=== PATIENT | female | born 1955 | race Caucasian/White ===

== ENCOUNTER 2022-03-30 13:58 | Emergency (ER) | payer MEDICARE ==
[2022-03-30 14:12] VITALS: BP 126/65
[2022-03-30] MEDS ORDERED: LIDOCAINE 1%-EPI 1:100000 20 ML MDV SUBQ STA (14:32)
--- NOTE | 2022-03-30 14:35 | ED Physician Documentation ---
PD HPI SKIN - Stated complaint Stated Complaint: BACK PX - Chief complaint Chief Complaint: Wound - History obtained from History obtained from: Patient - Additional information Additional information: Patient is a 66-year-old presenting for evaluation of a boil to her back that is been present for the last month. She reports having these recurrently and normally they will open up on their own after 2 to 3 weeks but this 1 is not and seems to be increasing in size and causing more discomfort. She denies any known injury or trauma. She has not taken any medications or tried any treatments for it.She does have a history of genital herpes and reports currently having outbreak and is on Valtrex.She denies fever, chest pain, difficulty breathing, abdominal pain, vomiting or dysuria. Review of Systems Constitutional: denies: Fever Nose: denies: Congestion Cardiac: denies: Chest pain / pressure Respiratory: denies: Dyspnea GI: denies: Abdominal Pain, Vomiting Skin: reports: Other (Abscess) Musculoskeletal: denies: Neck pain Neurologic: denies: Headache PD PAST MEDICAL HISTORY - Present Medications Home Medications: Ambulatory Orders Medication Instructions Recorded Confirmed Sulfamethox/Trimeth 800/160 1 each PO BID #14 tablet 03/30/22 [Bactrim Ds 800/160] cephALEXin [Keflex] 500 mg PO Q6H #28 cap 03/30/22 - Allergies Allergies/Adverse Reactions: Allergies Allergy/AdvReac Type Severity Reaction Status Date / Time amoxicillin Allergy Itching Verified 03/30/22 14:12 nitrofurantoin Allergy Anaphylaxis Verified 03/30/22 14:12 [From Macrobid] Penicillins Allergy Itching Verified 03/30/22 14:12 PD ED PE NORMAL - General General: Alert and oriented X 3, No acute distress, Well developed/nourished - HEENT HEENT: Atraumatic, Moist mucous membranes - Neck Neck: Supple, no meningeal sign - Cardiac Cardiac: RRR, Strong equal pulses - Respiratory Respiratory: No respiratory distress, Clear bilaterally - Back Back: No spinal TTP, Other (2 cm area of swelling and fluctuance to mid thoracic region) - Derm Derm: Warm and dry - Extremities Extremities: No edema - Neuro Neuro: Normal speech Results - Vitals Vitals: Vital Signs - 24 hr 03/30/22 14:08 Temperature 36.8 C Heart Rate 77 Respiratory 16 Rate Blood Pressure 126/65 O2 Saturation 98 Oxygen O2 Source Room air Procedures - Abscess I&D (location) Back Preparation: Confirmed with ultrasound, Lidocaine 1%, With epi Incision: Incised with scalpel, Purulent drainage, Loculations broken Other: Pt tolerated well, Dressing applied PD MEDICAL DECISION MAKING - ED course ED course: Patient with abscess to the back that was incised and drained which patient tolerated well. There is an area of overlying erythema and I have covered for cellulitis with antibiotics. Patient counseled on concerning symptoms to return for. Her vital signs are stable and she does not appear septic. Departure - Departure Disposition: 01 Home, Self Care Clinical Impression: Back abscess, Cellulitis of back Condition: Stable Instructions: ED Abscess IandD Prescriptions: Sulfamethox/Trimeth 800/160 [Bactrim Ds 800/160] 1 each PO BID #14 tablet cephALEXin [Keflex] 500 mg PO Q6H #28 cap Comments: You were evaluated for an abscess to your back which was incised and drained. I would expect this to continue to drain for the next several days. Have applied a dressing. You can keep a clean and dry dressing over the wound. There was an area of overlying redness And so I have started you on antibiotics to cover for a skin infection. I have sent these prescriptions to [facility] in [place].If you have any worsening symptoms please consider return to the ER or follow-up with your primary care doctor. Discharge Date/Time: 03/30/22 15:29
== END 2022-03-30 15:29 | disposition home or self-care (01) ==
LOC: ED 13:58
DX: L03.312 Cellulitis of back [any part except buttock and flank] (principal)
CPT/HCPCS: 10060; 99282

== ENCOUNTER 2024-02-20 17:02 | Emergency (ER) | payer MEDICARE ==
--- NOTE | 2024-02-20 17:15 | ED Physician Documentation ---
PD HPI SKIN - Stated complaint Stated Complaint: ABCESS/BACK PX - Chief complaint Chief Complaint: Wound - History obtained from History obtained from: Patient - Additional information Additional information: 68-year-old female presents with swelling and redness on her right lower back. Patient states that she had a swollen but soft area on her right lower back for a couple of months but a week or so ago it started to get more sore and irritated. She went to the walk-in clinic and received a 5-day prescription for doxycycline which she just completed and has not had any improvement and in fact has developed increasing redness and soreness around the affected area. Today she felt like The wound might be worsening and became concerned thus presented to the ER. Patient does have a history of Sepsis and necrotizing fasciitis about 15 years ago after a large groin wound. She has a history of MRSA. Review of Systems Constitutional: reports: Reviewed and negative Eyes: reports: Reviewed and negative Ears: reports: Reviewed and negative Nose: reports: Reviewed and negative Throat: reports: Reviewed and negative Cardiac: reports: Reviewed and negative Respiratory: reports: Reviewed and negative GI: reports: Reviewed and negative : reports: Reviewed and negative Skin: reports: Lesions Musculoskeletal: reports: Reviewed and negative Neurologic: reports: Reviewed and negative Psychiatric: reports: Reviewed and negative Endocrine: reports: Reviewed and negative PD PAST MEDICAL HISTORY - Past Medical History Past Medical History: Yes Cardiovascular: Coronary artery disease CARD 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: Breast cancer Derm: Other Other Past Medical History: necrotizing fascitis - Past Surgical History Past Surgical History: Yes Cardiovascular: Coronary stent - Present Medications Home Medications: Ambulatory Orders Medication Instructions Recorded Confirmed Sulfamethox/Trimeth 800/160 1 each PO BID #14 tablet 03/30/22 [Bactrim Ds 800/160] cephALEXin [Keflex] 500 mg PO Q6H #28 cap 03/30/22 Doxycycline [Vibramycin] 100 mg PO BID #20 tablet 02/20/24 cephALEXin [Keflex] 500 mg PO Q6H #28 cap 02/20/24 - Allergies Allergies/Adverse Reactions: Allergies Allergy/AdvReac Type Severity Reaction Status Date / Time amoxicillin Allergy Itching Verified 02/20/24 17:12 nitrofurantoin Allergy Anaphylaxis Verified 02/20/24 17:12 [From Macrobid] Penicillins Allergy Itching Verified 02/20/24 17:12 - Social History Does the pt smoke?: No Smoking Status: Never smoker Does the pt drink ETOH?: No Does the pt have substance abuse?: No - Immunizations Immunizations are current?: Yes PD ED PE NORMAL - Vitals Vital signs reviewed: Yes - General General: Alert and oriented X 3, No acute distress, Well developed/nourished - Back Back: No CVA TTP, No spinal TTP - Derm Derm: Normal color, Warm and dry, Other (There is a 5 x 3 cm area of induration right mid lower back with surrounding erythema, no streaking erythema. No fluctuance mildly tender to touch.) - Neuro Neuro: Alert and oriented X 3 Eye Opening: Spontaneous Motor: Obeys Commands Verbal: Oriented GCS Score: 15 - Psych Psych: Normal mood, Normal affect Results - Vitals Vitals: Vital Signs - 24 hr 02/20/24 02/20/24 17:07 18:03 Temperature 36.5 C 36.8 C Heart Rate 72 70 Respiratory 20 18 Rate Blood Pressure 167/114 H 140/88 H O2 Saturation 97 98 Oxygen O2 Source Room air Procedures - Abscess I&D (location) Back right Lower Preparation: Betadine, Lidocaine 1%, With epi Incision: Incised with scalpel, Loculations broken, Irrigated, Packed Other: Pt tolerated well, Antibiotic prescribed PD Medical Decision Making - ED course Complexity details: considered differential, d/w patient ED course: 68-year-old female presented with a lesion on her right lower back is reddened, indurated. There is concern for abscess versus cyst versus cellulitis. After discussion patient she did wish to proceed with incision and drainage. The area was cleaned and prepped thoroughly, anesthetized locally with 1% lidocaine with epi and an incision was made into the wound. There was chunky cystic like drainage from the wound suspicious for a ruptured cyst. The loculations were broken up, and quite a bit of Cystic tissue was removed from the wound. I irrigated with saline and cleaned thoroughly and then packed with iodoform. Patient tolerated this very well and felt substantially relief. I advised that this will likely continue to drain, recommended continuing warm compress, and follow-up in 2 days for wound reevaluation and removal of packing. Hopefully at that point in time if there is improvement we can discontinue the packing. I am going to extend the doxycycline for another 10 days and also cover with Keflex given patient's history of severe illness related to abscess. She was advised to return immediately if she developed worsening symptoms, fever, flulike symptoms, spreading erythema, increased pain or new concerns. Departure - Departure Disposition: 01 Home, Self Care Clinical Impression: Infected cyst of skin Condition: Good Instructions: ED Abscess IandD Prescriptions: cephALEXin [Keflex] 500 mg PO Q6H #28 cap Doxycycline [Vibramycin] 100 mg PO BID #20 tablet Comments: You had a cyst on your back that appears to have ruptured and caused an infection. I incised the skin in drain is much of the cyst as I could. There is packing in the wound and I would like you to return in 2 days to have the wound reevaluated. In the meantime, we will start you on 2 antibiotics called Keflex and doxycycline. Please take these until completed. If you develop a fever or worsening symptoms return to the ER at any point in time. Forms: PCP List Discharge Date/Time: 02/20/24 18:05
[2024-02-20] MEDS: cephALEXin 250 MG CAPSULE PO STA (18:01)
[2024-02-20] MEDS: DOXYCYCLINE 100 MG TABLET PO STA (18:01)
[2024-02-20 18:11] VITALS: BP 140/88; O2SAT 98
== END 2024-02-20 18:05 | disposition home or self-care (01) ==
LOC: ED 17:02
DX: L72.9 Follicular cyst of the skin and subcutaneous tissue, unspecified (principal); Z88.1 Allergy status to other antibiotic agents
CPT/HCPCS: 10061; 99283; A9270

== ENCOUNTER 2024-02-22 12:38 | Emergency (ER) | payer MEDICARE ==
--- NOTE | 2024-02-22 13:11 | ED Physician Documentation ---
History of Present Illness - Stated complaint Stated Complaint: BACK WOUND FOLLOW UP - Chief complaint Chief Complaint: General - History obtained from History obtained from: Patient - Additonal information Additional information: Patient is a 68-year-old female presenting to the emergency department 2 days after having incision and drainage here in the emergency department for right flank abscess. Patient had packing placed and was instructed to return in 2 days for removal of packing. Patient's wound was irrigated well 2 days ago in emergency department. Patient notes persistent pain but has improvement in drainage from the wound. Packing remains in place. She has no fevers or chills with her symptoms.Patient was started on doxycycline and Keflex. She has been compliant with this since being discharged 2 days ago. Her doxycycline was prolonged as she had started on it 5 days prior from walk-in clinic and was started on Keflex as a new antibiotic as well. She has been doing dressing changes daily with some persistent discharge but pain has slightly improved. Patient concerned as she noticed a new small bump to the right of her previous abscess and would like that evaluated as well. 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 Derm: Other - Past Surgical History Past Surgical History: Yes Cardiovascular: Coronary stent - Present Medications Home Medications: Ambulatory Orders Medication Instructions Recorded Confirmed Sulfamethox/Trimeth 800/160 1 each PO BID #14 tablet 03/30/22 [Bactrim Ds 800/160] cephALEXin [Keflex] 500 mg PO Q6H #28 cap 03/30/22 Doxycycline [Vibramycin] 100 mg PO BID #20 tablet 02/20/24 cephALEXin [Keflex] 500 mg PO Q6H #28 cap 02/20/24 Chlorhexidine Gluconate 15 ml TP DAILY #10 ml 02/22/24 [Antiseptic Skin Cleanser] - Allergies Allergies/Adverse Reactions: Allergies Allergy/AdvReac Type Severity Reaction Status Date / Time amoxicillin Allergy Itching Verified 02/22/24 13:01 nitrofurantoin Allergy Anaphylaxis Verified 02/22/24 13:01 [From Macrobid] Penicillins Allergy Itching Verified 02/22/24 13:01 - Social History Does the pt smoke?: No Smoking Status: Never smoker Does the pt drink ETOH?: No Does the pt have substance abuse?: No - Immunizations Immunizations are current?: Yes PD ED PE NORMAL - Vitals Vital signs reviewed: Yes - General General: Alert and oriented X 3 - HEENT HEENT: Atraumatic - Neck Neck: Supple, no meningeal sign, No JVD, C-Spine cleared by NEXUS criteria - Cardiac Cardiac: RRR, No murmur, No gallop, No rub - Respiratory Respiratory: No respiratory distress, Clear bilaterally - Abdomen Abdomen: Normal bowel sounds, Soft, Non tender, Non distended - Female Female : Deferred - Rectal Rectal: Deferred - Back Back: No CVA TTP - Derm Derm: Warm and dry, Other (Abscess with open wound on right flank no persistent drainage on examination packing in place. Induration still present approximately 3 cm in size. No palpable fluctuance to the area. Significant tenderness on examination. Additional abscess with induration noted to the right with palpable indur) - Neuro Neuro: Alert and oriented X 3 Eye Opening: Spontaneous Motor: Obeys Commands Verbal: Oriented GCS Score: 15 Results - Vitals Vitals: Vital Signs - 24 hr 02/22/24 12:55 Temperature 36.3 C L Heart Rate 67 Respiratory 18 Rate Blood Pressure 153/89 H O2 Saturation 96 Oxygen O2 Source Room air PD Medical Decision Making - ED course Complexity details: reviewed old records, reviewed results ED course: Patient is a 68-year-old female presenting to the emergency department after being seen 2 days ago and had infected cyst on right flank removed. She had dressing change and it was packed with iodoform gauze. Patient tolerated this well and has been on oral antibiotics that she has been compliant with the last 2 days. She was started on doxycycline about 5 days ago from walk-in clinic and was started on Keflex and doxycycline was increased since her drainage of the abscess here 2 days ago. Patient has been compliant with this. She denies any fever fever or chills she notes persistent pain to her right flank but drainage has improved. She has been doing daily dressing changes without difficulty and with the assistance of her who is present. Patient is concerned a small new abscess to right of her previous drained abscess appears to be worsening. Vital stable here patient is afebrile nontachycardic. Physical exam shows iodoform gauze in place which was removed and then washed with normal saline to ensure no remained gauze in the wound. On examination there does appear to be a 1 cm size flank abscess with induration on exam. No appreciable drainage and bedside ultrasound performed to confirm no signs of drainable fluid at the time. Patient instructed to continue on oral antibiotics. She was given Hibiclens soap to wash with to prevent persistent abscesses once her wound has closed up. She was given more supplies for wound changes. She is given referral to general surgery and will return with any worsening abscesses fevers chills increase in size of her abscess drainage or any other new or worsening symptoms. Patient understands and is agreeable with this plan. Departure - Departure Disposition: 01 Home, Self Care Clinical Impression: Encounter for wound re-check, H/O drainage of abscess, Infected cyst of skin Condition: Good Follow-Up: Bigg Hernadez MD [Primary Care Provider] - Garrett Rebolledo MD [Provider Admit Priv/Credential] - Comments: I have given you the number for the general surgeon for follow-up. You should follow-up with them once you have finished the oral antibiotics. This will allow for further evaluation and may require cyst removal. If you develop any fevers chills worsening drainage increased size of the abscess return to the emergency department. Continue with the oral antibiotics as prescribed and continue with dressing changes daily. Watch for worsening redness warmth fevers or chI have sent prescription to your pharmacy for soap wash to use once your abscess has decreased in size and drainage has resolved Forms: PCP List
[2024-02-22 14:36] VITALS: BP 163/99; O2SAT 99
== END 2024-02-22 14:28 | disposition home or self-care (01) ==
LOC: ED 12:38
DX: Z48.00 Encounter for change or removal of nonsurgical wound dressing (principal); L72.9 Follicular cyst of the skin and subcutaneous tissue, unspecified; Z88.1 Allergy status to other antibiotic agents
CPT/HCPCS: 99281